=== PATIENT | male | born 1975 | race Caucasian/White ===

== ENCOUNTER 2016-11-27 17:24 | Emergency (ER) | payer OTHER ==
[~2016-11-27] VITALS: Ht 185.4 cm; Wt 117.2 kg
[~2016-11-27 17:24] MED LIST: CRESTOR PO; DAILY VITAMIN1 EAC8 PO; ERGOCALCIF50000 UNIT PO; FISH OIL500 MG PO; FORTAMET500 MG PO; GLUCOPHAGE500 MG PO; LISINOPRIL 20 MG TAB PO; LISINOPRIL PO; LOSARTAN POTASS50 MG PO; METFORMIN PO; MOBIC15 MG PO; OXYCODONE HCL10 MG PO; PANTOPRAZOLE SO40 MG PO; PREVACID PO; PRILOSEC40 MG PO; PROTONIX40 MG PO; ROBAXIN500 MG PO; SIMVASTATIN40 MG PO; TRILEPTAL PO; TRILIPIX135 MG PO
[2016-11-27 17:55] LABS: HEMATOCRIT 41.7 % (38.0-50.0); MCH 29.5 PG (29.0-34.0); MCHC 34.8 G/DL (30.0-36.0); MCV 84.8 FL (86-99); MEAN PLAT.VOLUME 10.8 uM^3 (9.0-12.4); PLATELET COUNT 241 K/uL (156-360); RBC DIS.WIDTH-CV 11.6 % (11.8-14.6); RBC DIS.WIDTH-SD 35.7 % (39-53); RED BLOOD COUNT 4.92 M/uL (4.00-5.50); WHITE BLOOD COUNT 8.9 K/uL (4.1-10.2)
[2016-11-27 18:05] LABS: CHLORIDE 107 mEq/L (99-109); POTASSIUM 3.7 mEq/L (3.7-5.4); SODIUM 141 mEq/L (136-147)
[2016-11-27 18:06] LABS: GLUCOSE 136 mg/dL (70-99)
[2016-11-27 18:08] LABS: ANION GAP 11 MEQ/L (2-14)
[2016-11-27 18:10] LABS: GFR ESTIMATE (CALCULATED) > 59 mL/min/
[2016-11-27 18:11] LABS: UREA NITROGEN (BUN) 15 mg/dL (9-23)
[2016-11-27 18:15] LABS: TROP-I INTERPRETATION NEGATIVE; TROPONIN-I < 0.01 ng/mL (0.0-0.30)
[2016-11-27 20:04] LABS: TOTAL BILIRUBIN 0.6 mg/dL (0.0-1.0)
[2016-11-27 20:05] LABS: ALKALINE PHOSPHATASE 42 IU/L (3-129)
[2016-11-27 20:08] LABS: DIRECT BILIRUBIN 0.2 mg/dL (0.0-0.3)
[2016-11-27 20:09] LABS: LIPASE 23 U/L (1.0-51.0)
[2016-11-27 21:45] LABS: TROP-I INTERPRETATION NEGATIVE; TROPONIN-I < 0.01 ng/mL (0.0-0.30)
[2016-11-27 22:15] VITALS: BP 127/81
== END 2016-11-27 22:53 | disposition home or self-care (01) ==
LOC: EME 17:24
PROVIDERS: Emergency Medicine
DX: R07.9 Chest pain, unspecified (principal); K21.9 Gastro-esophageal reflux disease without esophagitis; R06.02 Shortness of breath; I10 Essential (primary) hypertension; E11.9 Type 2 diabetes mellitus without complications; E78.5 Hyperlipidemia, unspecified; Z72.0 Tobacco use
CPT/HCPCS: 71020; 80048; 80076; 83690; 84484; 85027; 93005; 99281; 99284

== ENCOUNTER → 2016-12-27 | Outpatient (CLI) | payer OTHER | END | disposition home or self-care (01) | LOC: NUC 06:49 | DX: R10.13 Epigastric pain (principal); R14.0 Abdominal distension (gaseous) | CPT/HCPCS: 78264; A9541 ==

== ENCOUNTER 2016-12-30 13:07 | Emergency (ER) | payer OTHER ==
[~2016-12-30] VITALS: Ht 185.4 cm; Wt 117.3 kg
[2016-12-30 14:44] LABS: HEMATOCRIT 41.7 % (38.0-50.0); MCH 28.9 PG (29.0-34.0); MCHC 34.5 G/DL (30.0-36.0); MCV 83.6 FL (86-99); MEAN PLAT.VOLUME 11.2 uM^3 (9.0-12.4); PLATELET COUNT 237 K/uL (156-360); RBC DIS.WIDTH-CV 11.8 % (11.8-14.6); RBC DIS.WIDTH-SD 35.6 % (39-53); RED BLOOD COUNT 4.99 M/uL (4.00-5.50); WHITE BLOOD COUNT 8.2 K/uL (4.1-10.2)
[2016-12-30 14:53] LABS: CHLORIDE 109 mEq/L (99-109); POTASSIUM 4.6 mEq/L (3.7-5.4); SODIUM 140 mEq/L (136-147)
[2016-12-30 14:55] LABS: GLUCOSE 119 mg/dL (70-99)
[2016-12-30 14:57] LABS: ANION GAP 8 MEQ/L (2-14)
[2016-12-30 14:59] LABS: GFR ESTIMATE (CALCULATED) > 59 mL/min/
[2016-12-30 15:00] LABS: UREA NITROGEN (BUN) 12 mg/dL (9-23)
[2016-12-30 15:09] LABS: TROP-I INTERPRETATION NEGATIVE; TROPONIN-I < 0.01 ng/mL (0.0-0.30)
[2016-12-30 18:19] LABS: TROP-I INTERPRETATION NEGATIVE; TROPONIN-I < 0.01 ng/mL (0.0-0.30)
[2016-12-30 18:42] VITALS: BP 134/92
== END 2016-12-30 18:44 | disposition home or self-care (01) ==
LOC: EME 13:07
PROVIDERS: Nurse Practitioner Family
DX: R07.9 Chest pain, unspecified (principal); R10.13 Epigastric pain; E11.9 Type 2 diabetes mellitus without complications; E78.5 Hyperlipidemia, unspecified; I10 Essential (primary) hypertension; K21.9 Gastro-esophageal reflux disease without esophagitis; Z98.1 Arthrodesis status; Z87.891 Personal history of nicotine dependence
CPT/HCPCS: 71020; 80048; 84484; 85027; 93005; 99281; 99284

== ENCOUNTER → 2017-01-19 | Outpatient (CLI) | payer OTHER ==
[~2017-01-19] VITALS: Ht 185.4 cm; Wt 116.6 kg
[~2017-01-19] MED LIST changes: +DEXILANT60 MG PO; +FENOFIBRATE48 MG PO; +METAMUCIL POWD798 GM PO; +PROBIOTIC1 EAC1 PO; +ROXICODONE15 MG PO; +SIMVASTATIN20 MG PO
[2017-01-19 08:53] LABS: POINT-OF-CARE METER ID UU13113694
== END | disposition home or self-care (01) ==
LOC: AMB 01-12 09:30
PROVIDERS: Internal Medicine Gastroenterology
PROC: 0DB68ZX Excision of Stomach, Via Natural or Artificial Opening Endoscopic, Diagnostic (ICD-10-PCS; principal; 2017-01-19)
DX: E11.43 Type 2 diabetes mellitus with diabetic autonomic (poly)neuropathy (principal); K31.84 Gastroparesis; K21.9 Gastro-esophageal reflux disease without esophagitis; K29.70 Gastritis, unspecified, without bleeding; I10 Essential (primary) hypertension; R11.10 Vomiting, unspecified; Z79.84 Long term (current) use of oral hypoglycemic drugs; Z87.891 Personal history of nicotine dependence
CPT/HCPCS: 82948; 88305; 88342 TC; J2250; J3010

== ENCOUNTER 2017-04-13 17:36 | Emergency (ER) | payer OTHER ==
[~2017-04-13] VITALS: Ht 185.4 cm; Wt 116.9 kg
[2017-04-13 19:44] LABS: ADD MIUA? NO; BILIRUBIN NEGATIVE; BLOOD NEGATIVE; COLOR YELLOW ((YELLOW)); GLUCOSE (STRIP) NEGATIVE; KETONES NEGATIVE; LEUKOCYTES NEGATIVE; NITRITE NEGATIVE; PROTEIN (STRIP) NEGATIVE; SPECIFIC GRAVITY 1.014 (1.000-1.030); UCUL ADDED? NO; UROBILINOGEN 0.2 MG/DL (0.2-1.0)
[2017-04-13 19:58] LABS: HEMATOCRIT 41.5 % (38.0-50.0); MCH 28.9 PG (29.0-34.0); MCHC 34.7 G/DL (30.0-36.0); MCV 83.2 FL (86-99); MEAN PLAT.VOLUME 11.4 uM^3 (9.0-12.4); PLATELET COUNT 213 K/uL (156-360); RBC DIS.WIDTH-CV 11.6 % (11.8-14.6); RBC DIS.WIDTH-SD 35.2 % (39-53); RED BLOOD COUNT 4.99 M/uL (4.00-5.50); WHITE BLOOD COUNT 8.3 K/uL (4.1-10.2)
[2017-04-13 20:09] LABS: CHLORIDE 107 mEq/L (99-109); SODIUM 138 mEq/L (136-147)
[2017-04-13 20:11] LABS: GLUCOSE 134 mg/dL (70-99)
[2017-04-13 20:13] LABS: ANION GAP 8 MEQ/L (2-14); TOTAL BILIRUBIN 0.3 mg/dL (0.0-1.0)
[2017-04-13 20:15] LABS: ALKALINE PHOSPHATASE 52 IU/L (3-129); GFR ESTIMATE (CALCULATED) > 59 mL/min/
[2017-04-13 20:16] LABS: UREA NITROGEN (BUN) 15 mg/dL (9-23)
[2017-04-13 20:18] LABS: LIPASE 38 U/L (1.0-51.0)
[2017-04-14 01:06] VITALS: BP 143/100
== END 2017-04-14 01:08 | disposition home or self-care (01) ==
LOC: EME 17:36
PROVIDERS: Nurse Practitioner Family
DX: R10.32 Left lower quadrant pain (principal); E78.5 Hyperlipidemia, unspecified; E11.9 Type 2 diabetes mellitus without complications; Z79.84 Long term (current) use of oral hypoglycemic drugs; Z87.891 Personal history of nicotine dependence; Z98.1 Arthrodesis status
CPT/HCPCS: 74177; 80053; 81003; 83690; 85027; 99281; 99284; J1885; J2405; J3010; J7030

== ENCOUNTER 2017-05-08 10:04 | Emergency (ER) | payer OTHER ==
[~2017-05-08] VITALS: Ht 185.4 cm; Wt 112.0 kg
[2017-05-08 11:19] LABS: HEMATOCRIT 37.4 % (38.0-50.0); MCH 29.1 PG (29.0-34.0); MCV 83.1 FL (86-99); PLATELET COUNT 177 K/uL (156-360); RBC DIS.WIDTH-SD 36.3 % (39-53); WHITE BLOOD COUNT 7.2 K/uL (4.1-10.2)
[2017-05-08 11:27] LABS: CHLORIDE 111 mEq/L (99-109); POTASSIUM 3.8 mEq/L (3.7-5.4); SODIUM 142 mEq/L (136-147)
[2017-05-08 11:29] LABS: GLUCOSE 152 mg/dL (70-99)
[2017-05-08 11:31] LABS: ANION GAP 9 MEQ/L (2-14); TOTAL BILIRUBIN 0.3 mg/dL (0.0-1.0)
[2017-05-08 11:33] LABS: ALKALINE PHOSPHATASE 43 IU/L (3-129); GFR ESTIMATE (CALCULATED) > 59 mL/min/
[2017-05-08 11:34] LABS: UREA NITROGEN (BUN) 12 mg/dL (9-23)
[2017-05-08 11:40] LABS: TROP-I INTERPRETATION NEGATIVE; TROPONIN-I < 0.01 ng/mL (0.0-0.30)
[2017-05-08 12:53] LABS: D-DIMER ELISA < 150.00 ng/mLDDU (<230)
[2017-05-08 13:24] VITALS: BP 119/78
== END 2017-05-08 13:25 | disposition home or self-care (01) ==
LOC: EME 10:04
PROVIDERS: Nurse Practitioner Family
DX: R06.02 Shortness of breath (principal); I10 Essential (primary) hypertension; E78.5 Hyperlipidemia, unspecified; E11.9 Type 2 diabetes mellitus without complications; Z79.84 Long term (current) use of oral hypoglycemic drugs; Z87.891 Personal history of nicotine dependence
CPT/HCPCS: 71020; 80053; 84484; 85027; 85379; 93005; 99281; 99284

== ENCOUNTER → 2017-07-27 | Outpatient (CLI) | payer OTHER ==
[~2017-07-27] VITALS: Ht 185.4 cm; Wt 113.4 kg
[~2017-07-27] MED LIST changes: +XANAX0.25 MG PO
[2017-07-27 09:54] LABS: POINT-OF-CARE METER ID UU14107333
[2017-07-27 10:26] LABS: CHLORIDE 106 mEq/L (99-109); POTASSIUM 3.9 mEq/L (3.7-5.4); SODIUM 141 mEq/L (136-147)
[2017-07-27 10:28] LABS: GLUCOSE 124 mg/dL (70-99)
[2017-07-27 10:29] LABS: ANION GAP 10 MEQ/L (2-14)
[2017-07-27 10:32] LABS: GFR ESTIMATE (CALCULATED) > 59 mL/min/; UREA NITROGEN (BUN) 10 mg/dL (9-23)
== END | disposition home or self-care (01) ==
LOC: AMB 09:26
PROVIDERS: Internal Medicine Gastroenterology
PROC: 0DBE8ZX Excision of Large Intestine, Via Natural or Artificial Opening Endoscopic, Diagnostic (ICD-10-PCS; principal; 2017-07-27)
DX: R19.7 Diarrhea, unspecified (principal); K62.89 Other specified diseases of anus and rectum; K21.9 Gastro-esophageal reflux disease without esophagitis; R14.0 Abdominal distension (gaseous); E11.9 Type 2 diabetes mellitus without complications; Z79.84 Long term (current) use of oral hypoglycemic drugs; G89.29 Other chronic pain; Z98.1 Arthrodesis status; E78.5 Hyperlipidemia, unspecified; I10 Essential (primary) hypertension; E55.9 Vitamin D deficiency, unspecified; F41.9 Anxiety disorder, unspecified; M51.16 Intervertebral disc disorders with radiculopathy, lumbar region; Z87.891 Personal history of nicotine dependence; Z80.3 Family history of malignant neoplasm of breast; Z83.3 Family history of diabetes mellitus; Z82.49 Family history of ischemic heart disease and other diseases of the circulatory system
CPT/HCPCS: 80048; 82948; 88305; 88313; J2250; J3010

== ENCOUNTER 2017-12-14 16:31 | Emergency (ER) | payer BC ==
[~2017-12-14] VITALS: Ht 185.4 cm; Wt 116.6 kg
[2017-12-14 17:55] LABS: HEMATOCRIT 39.8 % (38.0-50.0); HEMOGLOBIN 14.3 G/DL (12.5-16.6); MCH 30.1 PG (29.0-34.0); MCHC 35.9 G/DL (30.0-36.0); MCV 83.8 FL (86-99); PLATELET COUNT 237 K/uL (156-360); RBC DIS.WIDTH-CV 11.9 % (11.8-14.6); RBC DIS.WIDTH-SD 35.9 % (39-53); RED BLOOD COUNT 4.75 M/uL (4.00-5.50); WHITE BLOOD COUNT 13.2 K/uL (4.1-10.2)
[2017-12-14 18:18] LABS: ALBUMIN 4.4 g/dL (3.2-4.8)
[2017-12-14 18:19] LABS: CHLORIDE 109 mEq/L (99-109); POTASSIUM 4.1 mEq/L (3.7-5.4); SODIUM 140 mEq/L (136-147)
[2017-12-14 18:21] LABS: GLUCOSE 135 mg/dL (70-99); TOTAL PROTEIN 6.8 g/dL (6.4-8.3)
[2017-12-14 18:23] LABS: TOTAL BILIRUBIN 0.2 mg/dL (0.0-1.0)
[2017-12-14 18:24] LABS: ALKALINE PHOSPHATASE 43 IU/L (3-129)
[2017-12-14 18:25] LABS: CREATININE 1.1 mg/dL (0.6-1.3); GFR ESTIMATE (CALCULATED) > 59 mL/min/ (58.99-99999)
[2017-12-14 18:26] LABS: AST (GOT) 21 IU/L (2-34); UREA NITROGEN (BUN) 17 mg/dL (9-23)
[2017-12-14 18:28] LABS: ALT (GPT) 42 IU/L (3-49); LIPASE 32 U/L (1.0-51.0)
[2017-12-14 18:53] LABS: APPEARANCE SL.HAZY ((CLEAR)); BILIRUBIN NEGATIVE; BLOOD NEGATIVE; COLOR YELLOW ((YELLOW)); GLUCOSE (STRIP) NEGATIVE; KETONES NEGATIVE; LEUKOCYTES NEGATIVE; NITRITE NEGATIVE; PROTEIN (STRIP) 30; SPECIFIC GRAVITY 1.029 (1.000-1.030); UROBILINOGEN 0.2 MG/DL (0.2-1.0)
[2017-12-14 18:59] LABS: BACTERIA RARE /HPF; EPITHELIAL CELLS RARE /HPF; MUCUS TRACE /LPF; RED BLOOD CELLS 0-5 /HPF (0-5); UCUL ADDED? NO; URIC ACID CRYSTALS 1+ /HPF; WHITE BLOOD CELLS 0-5 /HPF (0-5)
[2017-12-14] MEDS ORDERED: VALIUM2 MG PO (18:59)
[2017-12-14] MEDS ORDERED: MOTRIN600 MG PO (18:59)
[2017-12-14 19:28] VITALS: BP 152/105
== END 2017-12-14 19:31 | disposition home or self-care (01) ==
LOC: EME 16:31
PROVIDERS: Nurse Practitioner Acute Care
DX: M54.5 Low back pain (principal); E11.9 Type 2 diabetes mellitus without complications; I10 Essential (primary) hypertension; K21.9 Gastro-esophageal reflux disease without esophagitis; E78.5 Hyperlipidemia, unspecified; Z79.84 Long term (current) use of oral hypoglycemic drugs; Z87.891 Personal history of nicotine dependence; Z98.1 Arthrodesis status; Z98.890 Other specified postprocedural states; Z86.79 Personal history of other diseases of the circulatory system; J30.2 Other seasonal allergic rhinitis
CPT/HCPCS: 80053; 81003; 83690; 85027; 93005; 99281; 99284; J1885

== ENCOUNTER → 2018-03-06 | Outpatient (CLI) | payer BC ==
[~2018-03-06] MED LIST changes: +MOTRIN600 MG PO; +VALIUM2 MG PO
== END | disposition home or self-care (01) ==
LOC: CDC 10:33
DX: Z01.810 Encounter for preprocedural cardiovascular examination (principal)
CPT/HCPCS: 93000